=== PATIENT | male | born 1980 | race Caucasian/White ===

== ENCOUNTER 2017-12-23 08:21 | Emergency (ER) | payer SELFPAY ==
[~2017-12-23] VITALS: Ht 175.3 cm; Wt 67.1 kg
[2017-12-23 08:28] VITALS: BP 111/69; Ht 175.3 cm; Wt 67.1 kg
== END 2017-12-23 09:53 | disposition home or self-care (01) ==
LOC: ED 08:21
DX: S93.601A Unspecified sprain of right foot, initial encounter (principal); W20.8XXA Other cause of strike by thrown, projected or falling object, initial encounter; Y93.89 Activity, other specified; Y92.89 Other specified places as the place of occurrence of the external cause; Y99.8 Other external cause status
CPT/HCPCS: Q0092